=== PATIENT | male | born 1965 | race Caucasian/White ===

== ENCOUNTER 2017-07-09 09:43 | Emergency (ER) | payer OTHER ==
[2017-07-09 10:21] VITALS: BMI 32.5
[2017-07-09] MEDS ORDERED: Albuterol 0.083% Inhal Sol (2.5 mg/3 mL) UD INH STA (10:24)
[2017-07-09] MEDS ORDERED: Promethazine/Cod 6.25mg-10mg/5ml Syr UD PO STA (10:24)
[2017-07-09 10:34] VITALS: RESP 16; TEMP 98.7
--- NOTE | 2017-07-09 11:16 | ED PDOC ---
Arrival/HPI - General Chief Complaint: Flu-like Symptoms Time Seen by Provider: 07/09/17 10:23 Historian: Patient - History of Present Illness Narrative History of Present Illness (Text): 07/09/17 11:13 52yo male with PMhx of hypertension who present with 3weeks history of nonproductive cough. Notes that he saw his PMD for the cough and was given antibiotics which he took for 7days and finished. States he came to ED because he is still coughing. Taking OTC antitussives. He denies chest pain, SOB, diaphoresis, night sweats, sick contact, travel, any other complaint. He smokes tobacco. Past Medical History - Provider Review Nursing Documentation Reviewed: Yes - Past History Past History: No Previous - Infectious Disease Hx of Infectious Diseases: None - Tetanus Immunization Tetanus Immunization: Unknown - Cardiac Hx Cardiac Disorders: Yes Hx CT: Yes Hx Hypertension: Yes Hx Hypotension: Yes Other/Comment: triple bypass surgery 2009 - Pulmonary Hx Respiratory Disorders: No - Neurological Hx Neurological Disorder: No - HEENT Hx HEENT Disorder: No - Renal Hx Renal Disorder: No - Endocrine/Metabolic Hx Endocrine Disorders: No - Hematological/Oncological Hx Blood Disorders: Yes Hx Cirrhosis: Yes Hx Hepatitis C: Yes - Integumentary Hx Dermatological Disorder: No - Musculoskeletal/Rheumatological Hx Musculoskeletal Disorders: Yes Hx Osteoarthritis: Yes - Gastrointestinal Hx Gastrointestinal Disorders: No - Genitourinary/Gynecological Hx Genitourinary Disorders: No - Psychiatric Hx Psychophysiologic Disorder: No Hx Substance Use: No - Past Surgical History Past Surgical History: Non-Contributing - Surgical History Hx Coronary Artery Bypass Graft: Yes Hx Open Heart Surgery: Yes (CABG WITH 3 GRAFTS) - Anesthesia Hx Anesthesia: Yes Hx Anesthesia Reactions: No Hx Malignant Hyperthermia: No - Suicidal Assessment Feels Threatened In Home Enviroment: No Family/Social History - Physician Review Nursing Documentation Reviewed: Yes Family/Social History: Unknown Family HX Smoking Status: Current Some Days Smoker Hx Alcohol Use: No Hx Substance Use: No Hx Substance Use Treatment: Yes (methadone) Allergies/Home Meds Allergies/Adverse Reactions: Allergies smoking sesation pill Allergy (Severe, Uncoded 07/09/17 13:01) SWELLING Home Medications: Home Meds Medication Instructions Recorded Confirmed Aspirin 81 mg PO DAILY 10/13/12 07/09/17 Losartan/Hydrochlorothiazide 1 tab PO DAILY 10/13/14 07/09/17 [Losartan Potassium-Hydrochlorothiazide 12.5 M] Methadone Hydrochloride [Methadone 40 mg PO DAILY 10/13/14 07/09/17 Disp] Metoprolol Tartrate 25 mg PO BID 10/13/14 07/09/17 Simvastatin 40 mg PO DAILY 10/13/14 07/09/17 Review of Systems - Physician Review All systems were reviewed & negative as marked: Yes - Review of Systems Constitutional: Normal Eyes: Normal ENT: Normal Respiratory: Cough Cardiovascular: Normal Gastrointestinal: Normal Genitourinary Male: Normal Musculoskeletal: Normal Skin: Normal Neurological: Normal Endocrine: Normal Hemo/Lymphatic: Normal Psychiatric: Normal Physical Exam Vital Signs Reviewed: Yes Vital Signs Temp Pulse Resp BP Pulse Ox 07/09/17 11:30 98.7 F 68 16 169/89 H 97 07/09/17 10:31 98.7 F 67 16 155/94 H 96 Temperature: Afebrile Blood Pressure: Normal Pulse: Regular Respiratory Rate: Normal Appearance: Positive for: Well-Appearing, Non-Toxic, Comfortable Pain Distress: None Mental Status: Positive for: Alert and Oriented X 3 - Systems Exam Head: Present: Atraumatic, Normocephalic Pupils: Present: PERRL Extroacular Muscles: Present: EOMI Conjunctiva: Present: Normal Mouth: Present: Moist Mucous Membranes Neck: Present: Normal Range of Motion Respiratory/Chest: Present: Clear to Auscultation, Good Air Exchange. No: Respiratory Distress, Accessory Muscle Use, Wheezes, Decreased Breath Sounds, Rales, Retracting, Rhonchi Cardiovascular: Present: Regular Rate and Rhythm, Normal S1, S2. No: Murmurs Abdomen: Present: Normal Bowel Sounds. No: Tenderness, Distention, Peritoneal Signs Back: Present: Normal Inspection Upper Extremity: Present: Normal Inspection. No: Cyanosis, Edema Lower Extremity: Present: Normal Inspection. No: Edema Neurological: Present: GCS=15, CN II-XII Intact, Speech Normal Skin: Present: Warm, Dry, Normal Color. No: Rashes Psychiatric: Present: Alert, Oriented x 3, Normal Insight, Normal Concentration Medical Decision Making ED Course and Treatment: 07/09/17 21:42 Pt in ED for stated history. He was hemodynamically stable. CXr NAd Pt was given Zpack, antitussive for URI He was counselled on smoking cessation. Referred to his PMd. TRT ED for any new symptoms - RAD Interpretation Radiology Orders: 07/09/17 10:23 CHEST TWO VIEWS (PA/LAT) [RAD] Stat - Medication Orders Current Medication Orders: Discontinued Medications Albuterol Sulfate (Albuterol 0.083% Inhal Guerda (2.5 Mg/3 Ml) Ud) 2.5 mg INH STAT STA Stop: 07/09/17 10:25 Last Admin: 07/09/17 11:30 Dose: 2.5 mg Azithromycin (Zithromax) 500 mg PO STAT STA PRN Reason: Protocol Stop: 07/09/17 12:22 Last Admin: 07/09/17 12:52 Dose: 500 mg Promethazine HCl/Codeine (Phenergan/Codeine Oral Syrup) 5 ml PO STAT STA Stop: 07/09/17 10:25 Last Admin: 07/09/17 11:30 Dose: 5 ml Disposition/Present on Arrival - Present on Arrival Any Indicators Present on Arrival: No History of DVT/PE: No History of Uncontrolled Diabetes: No Urinary Catheter: No History of Decub. Ulcer: No History Surgical Site Infection Following: None - Disposition Have Diagnosis and Disposition been Completed?: Yes Diagnosis: Cough Disposition: HOME/ ROUTINE Disposition Time: 12:30 Patient Plan: Discharge Condition: STABLE Discharge Instructions (ExitCare): Acute Cough (ED) Additional Instructions: Follow up with your doctor Return to ED for any new or worsening symptoms Prescriptions: Albuterol HFA [Ventolin HFA 90 mcg/actuation (8 g)] 2 puff IH [id number] #1 puff Azithromycin [Zithromax] 250 mg PO DAILY #4 tab Benzonatate [Tessalon Perle] 100 mg PO TID #20 capsule Referrals: [facility] [place] [Outside] - Follow up with primary Forms: [employer] (Faroese)
[2017-07-09 11:31] VITALS: BP 169/89; PULSE 68; O2SAT 97
--- NOTE | 2017-07-09 12:13 | RAD ---
HISTORY: cough COMPARISON: 10/13/2012 TECHNIQUE: Chest PA and lateral FINDINGS: LUNGS: No active pulmonary disease. PLEURA: No significant pleural effusion identified. No pneumothorax apparent. CARDIOVASCULAR: Normal. OSSEOUS STRUCTURES: Sternal wires VISUALIZED UPPER ABDOMEN: Normal. OTHER FINDINGS: None. IMPRESSION: No active disease.
== END 2017-07-09 12:53 | disposition home or self-care (01) ==
LOC: ED 09:43
DX: R05 Cough (principal); I10 Essential (primary) hypertension